=== PATIENT | female | born 1930 | race Caucasian/White ===

== ENCOUNTER → 2017-02-12 | Outpatient (CLI) | payer MEDICARE ==
[~2017-02-12] MED LIST: ASPIRIN325 M2 PO; ATENOLOL25 MG PO; BETIMOL 2.5 ML2.5 M1 OU; FLEXERIL5 MG PO; LUMIGAN 2.5 ML2.5 M1; LUMIGAN 2.5 ML2.5 ML OU; NAPROSYN500 MG PO; NEXIUM40 MG; TRUSOPT 5 ML5 ML OU; VICODIN1 TAB PO; VYTORIN 10 MG-41 TAB PO; ZOCOR40 MG PO
== END | disposition home or self-care (01) ==
LOC: US 10:19
DX: R10.11 Right upper quadrant pain (principal); K76.0 Fatty (change of) liver, not elsewhere classified; K76.89 Other specified diseases of liver

== ENCOUNTER 2017-11-12 10:42 | Emergency (ER) | payer MEDICARE ==
[~2017-11-12] VITALS: Ht 167.6 cm; Wt 83.9 kg
== END 2017-11-12 12:26 | disposition home or self-care (01) ==
LOC: ED 10:42
DX: S92.401A Displaced unspecified fracture of right great toe, initial encounter for closed fracture (principal); Z88.1 Allergy status to other antibiotic agents; Z88.2 Allergy status to sulfonamides; Z79.899 Other long term (current) drug therapy; Z98.51 Tubal ligation status; W18.40XA Slipping, tripping and stumbling without falling, unspecified, initial encounter; Y93.01 Activity, walking, marching and hiking; Y92.89 Other specified places as the place of occurrence of the external cause; Y99.8 Other external cause status

== ENCOUNTER 2018-03-14 08:32 | Emergency (ER) | payer MEDICARE ==
[~2018-03-14] VITALS: Ht 167.6 cm; Wt 81.6 kg
== END 2018-03-14 11:09 | disposition home or self-care (01) ==
LOC: ED 08:32
DX: S32.010A Wedge compression fracture of first lumbar vertebra, initial encounter for closed fracture (principal); M54.6 Pain in thoracic spine; M41.9 Scoliosis, unspecified; Z79.899 Other long term (current) drug therapy; Z88.1 Allergy status to other antibiotic agents; Z88.2 Allergy status to sulfonamides; W01.198A Fall on same level from slipping, tripping and stumbling with subsequent striking against other object, initial encounter; Y93.01 Activity, walking, marching and hiking; Y92.098 Other place in other non-institutional residence as the place of occurrence of the external cause; Y99.8 Other external cause status

== ENCOUNTER 2020-04-13 12:51 | Emergency (ER) | payer MEDICARE ==
[~2020-04-13] VITALS: Ht 167.6 cm; Wt 68.0 kg
== END 2020-04-13 15:00 | disposition home or self-care (01) ==
LOC: ED 12:51
DX: S09.90XA Unspecified injury of head, initial encounter (principal); K21.9 Gastro-esophageal reflux disease without esophagitis; I10 Essential (primary) hypertension; E78.00 Pure hypercholesterolemia, unspecified; Z88.8 Allergy status to other drugs, medicaments and biological substances; Z79.899 Other long term (current) drug therapy